=== PATIENT | female | born 1945 | race African-American/Black ===

== ENCOUNTER 2016-09-12 10:00 | Inpatient (IN) | payer OTHER ==
[2016-09-05 14:38] VITALS: BMI 35.2
[2016-09-26] MEDS ORDERED: ALVIMOPAN 12 MG CAP PO ONE (12:30)
--- NOTE | 2016-09-26 12:30 | HP ---
History & Physical Update - History History: No Change - Physical Physical: No Change - Assessment Assessment: No Change - Plan Plan: No Change Currently as noted:: Initial H&P is in francisca's paper chart. Completed by Ruthy Garces MD
[2016-09-26] MEDS ORDERED: BUPIVACAINE HCL/PF 0.5% (5MG/ML) 10 ML VIAL ONE ×2 (12:35→17:14)
[2016-09-26] MEDS ORDERED: LIDOCAINE HCL/PF 2% SDV 5ML VIAL ONE (13:17)
[2016-09-26] MEDS ORDERED: PROPOFOL 20 ML ONE (13:17)
[2016-09-26] MEDS ORDERED: MIDAZOLAM HCL 2 MG/2 ML SINGLE DOSE VIAL ONE (13:17)
[2016-09-26] MEDS ORDERED: ROCURONIUM BROMIDE 50 MG/5 ML VIAL ONE ×2 (13:17→14:29)
[2016-09-26] MEDS ORDERED: ceFAZolin SODIUM 1 GM VIAL IVPB ONE (13:37)
[2016-09-26] MEDS ORDERED: DEXAMETHASONE SOD PHOSPHATE 4 MG/1 ML VIAL ONE (14:34)
[2016-09-26] MEDS ORDERED: ceFAZolin SODIUM 1 GM VIAL ONE ×2 (14:34)
[2016-09-26] MEDS ORDERED: HYDROmorphone HCL/PF 1 MG/ML VIAL (FOR PYXIS CHARGING ONLY) ONE ×2 (15:35→16:58)
[2016-09-26] MEDS ORDERED: ePHEDrine SULFATE 50 MG/1 ML AMPULE ONE (16:33)
[2016-09-26] MEDS ORDERED: PROMETHAZINE HCL 25 MG/1 ML VIAL IVPUSH PRN (17:37)
[2016-09-26] MEDS ORDERED: ONDANSETRON 4 MG/2 ML VIAL IVPUSH PRN ×2 (17:37)
[2016-09-26] MEDS ORDERED: DEXAMETHASONE SOD PHOSPHATE 4 MG/1 ML VIAL IVPUSH PRN (17:37)
[2016-09-26] MEDS ORDERED: PROMETHAZINE HCL 25 MG/1 ML VIAL IVPB PRN (17:37)
[2016-09-26] MEDS ORDERED: HYDROmorphone *PCA* 10MG/50ML DISP.SYRIN PCA ONE (17:43)
--- NOTE | 2016-09-26 17:43 | OP ---
Operative Note - Note: Pre-Operative Diagnosis: right colon neoplasm/ ventral hernia Operation: robotic assisted right colectomy and ventral hernia repair Post-Operative Diagnosis: Other Surgeon: Kevin Augustine Chicken Cleaner: Apollo Voss Anesthesia: General Specimens Removed: right colon, appendix, hernia sac Estimated Blood Loss (mls): 25 Operative Report Dictated: Yes
[2016-09-26] MEDS ORDERED: BUPIVACAINE HCL/PF 0.5% (5MG/ML) 10 ML VIAL IJ ONE (17:44)
[2016-09-26] MEDS ORDERED: KCL IV SCH (17:45)
[2016-09-26] MEDS ORDERED: LACTATED RINGERS SOLUTION 1,000 ML IV SCH (17:45)
[2016-09-26] MEDS ORDERED: D5 LR IV SCH (17:45)
--- NOTE | 2016-09-26 17:53 | SURG ---
Surgery Director Of Recruitment Note Director Of Recruitment: Apollo Voss PA-C Date of Service: 09/26/16 Diagnosis: right colon neoplasm/ ventral hernia Procedure: robotic assisted right colectomy and ventral hernia repair I was present for the entirety of the operative procedure. For further detail, please refer to operative report. Visit type - Case Type Case Type: Scheduled Admission - New patient This patient is new to me today: Yes Date on this admission: 09/26/16
[2016-09-26] MEDS: HYDROmorphone *PCA* 10MG/50ML DISP.SYRIN PCA SCH (18:15)
[2016-09-26 18:54] LABS: BASOPHIL 0.3 % (0-2.0); MCH 23.4 pg (25.7-33.7); MCHC 31.5 g/dl (32.0-36.0); MEAN CELL VOLUME 74.2 fl (80-96); MEAN PLT VOLUME 8.6 fl (7.5-11.1); NEUTROPHILS 90.6 % (42.8-82.8); PLATELET COUNT 266 K/MM3 (134-434); RDW 17.8 % (11.6-15.6)
[2016-09-26 19:14] LABS: ALBUMIN 3.5 g/dl (3.4-5.0); BILIRUBIN,TOTAL 0.2 mg/dL (0.2-1.0); CALCIUM 8.4 mg/dL (8.5-10.1); CREATININE 1.5 mg/dL (0.55-1.02); TOT PROT 6.8 g/dl (6.4-8.2)
[2016-09-27] MEDS ORDERED: PT OWN MED DRAWER 7, Y5N ONE ×2 (08:03→08:37)
--- NOTE | 2016-09-27 08:17 | OP ---
DATE OF OPERATION: DATE OF DICTATION: 09/26/2016 PREOPERATIVE DIAGNOSIS: Right colon neoplasm. POSTOPERATIVE DIAGNOSES: Right colon neoplasm and ventral hernia. PROCEDURE: Laparoscopic robotic-assisted right colectomy and ventral hernia repair. SURGEON: Kevin Augustine MD COVERAGE SPECIALIST: ROLANDO Alarcon COMPLICATIONS: None. SPECIMENS: Right colon and hernia sac. COMPLICATIONS: Patient tolerated procedure well. There were no complications. This is a 71-year-old female with a history of a colonic mass identified on colonoscopy and patient has a history of previous hysterectomy and small-bowel resection which was done several years ago. Medical clearance obtained, and patient was admitted for elective colon resection with bowel prep. At this point then, in the operating room she received IV antibiotics and DVT prophylaxis with Lovenox. The Veress needle was used to then insufflate the peritoneal cavity to a pressure of 15 mmHg. Next, a total of 5 ports were introduced first under direct view trocar followed by introduction of 4 robotic ports, all 8-mm ports. The Da Antoine robot was docked into place. Then, lysis of adhesions was done to release the extensive amount of anterior abdominal wall adhesions to the small bowel. Once this was completely freed, then attention was directed to the sigmoid colon. The left colic artery was identified. It was then mobilized. Entered into the retroperitoneum. The retrocolic artery was subsequently skeletonized and then divided with an Endo-SAVANNAH stapler 2.5. The mobilization was then carried northwards towards the terminal ileum using the vessel sealer to divide the mesentery until the border of the terminal ileum was reached and then the terminal ileum was divided with an Endo-SAVANNAH stapler white cartridge. Once this was completed, then the colon was then mobilized along the white line of Toldt until the gutter was subsequently freed using primarily the vessel sealer all the way to the hepatic flexure. Next, the transverse colon was then freed from the omentum and the left side was entered, duodenum identified, and the vessel sealer was used to divide the attachments and release superiorly the transverse colon towards the hepatic flexure all the way to the hepatic flexure, completely freeing the colon up to its posterior as well as lateral attachments. At this point then, an Endo-SAVANNAH purple cartridge was used to divide the colon at the level of the middle colic artery and then an anastomosis was done intracorporeally by first placing 2 stay sutures within the terminal ileum and the transverse colon and then a firing of an Endo-SAVANNAH purple cartridge within 2 enterotomies in order to create the anastomosis and then the common enterotomy channels were closed using first 2-0 Vicryl suture in a running fashion followed by a 2nd layer of 2-0 Lembert silk sutures. Once completed, then the specimen was placed in an EndoCatch bag and removed through an extraction incision which was made at the level of the hernia which was just inferior to the umbilicus and the specimen was brought out. At this point then, we changed gowns and gloves and reprepped the patient. The hernia sac was then dissected off the fascia using cautery and then a primary repair using No. 1 Vicryl sutures in interrupted figure-of-8 fashion was performed. Next, the wound was irrigated and suctioned. The final check for hemostasis was done. Marcaine was infiltrated at the wound extraction site. The ports were then closed using 4-0 Monocryl. The skin at the wound extraction site was closed with also 4-0 Monocryl. Dermabond was applied, and the patient was then returned to the recovery room awake, alert, in stable condition. Jean-Paul [id number]
[2016-09-27 08:38] LABS: BASOPHIL 0.1 % (0-2.0); MCH 23.6 pg (25.7-33.7); MCHC 31.7 g/dl (32.0-36.0); MEAN CELL VOLUME 74.5 fl (80-96); MEAN PLT VOLUME 8.9 fl (7.5-11.1); NEUTROPHILS 89.9 % (42.8-82.8); PLATELET COUNT 221 K/MM3 (134-434); RDW 17.6 % (11.6-15.6); WHITE BLOOD COUNT 15.9 K/mm3 (4.0-10.0)
--- NOTE | 2016-09-27 08:44 | PN ---
Progress Note (short form) - Note Progress Note: Anesthesia POD#1 S/P Robotic Laproscopic hemicolectomy under GA and Dilaudid HOT CAR CHARGER Patient is sitting in bed,alert and oriented.Pain is under control with dilaudid HOT CAR CHARGER. Some nausea is present. Did not start Orals yet. A/P Continue HOT CAR CHARGER for today. No other complications to anesthesia seen. Lisa Murphy .MD.
[2016-09-27] MEDS: ALVIMOPAN 12 MG CAP PO SCH ×2 (09:02→20:48)
[2016-09-27] MEDS ORDERED: PNEUMOC 13-VAL CONJ-DIP CRM/PF 0.5 ML DISP.SYRIN IM ONE (10:00)
[2016-09-27] MEDS ORDERED: INFLUENZA VACCINE 45 MCG/0.5 ML (MDV 16-17) IM ONE (10:00)
[2016-09-27] MEDS: amLODIPine BESYLATE 10 MG TABLET (FP) PO SCH (11:49)
[2016-09-27 12:04] LABS: ALBUMIN 3.2 g/dl (3.4-5.0); BILIRUBIN,TOTAL 0.3 mg/dL (0.2-1.0); CALCIUM 8.6 mg/dL (8.5-10.1); TOT PROT 6.6 g/dl (6.4-8.2)
--- NOTE | 2016-09-27 16:32 | PN ---
Progress Note (short form) - Note Progress Note: POD#1 Pt with one episode of nausea and clear emesis today. No further nausea. She has been oob to chair and ambulating to the restroom. Pain level comfortable when lying in bed, more pain with movement. Vital Signs Period Temp Pulse Resp BP Sys/Gutierrez Pulse Ox Last 24 Hr 97 F-98.3 F 59-79 6-18 93-135/49-75 93-99 PE: GEN: A&0x3, NAD CV:RRR Lungs: CTA b/l ABD: Soft, non-distended, inc tenderness with. Inc c/d/i with dermabond LE: Sandra in place. No calf tenderness or Swelling noted b/l CBC, BMP /19/17 06:00 01/19/17 06:00 A/P: s/p Robotic assisted right colectomy with ventral hernia repair POD#1 No bowel function, will continue NPO except for meds Pain managment with IV dilaudid CURRICULUM WRITER Cont DVT ppx with SANDRA/SCD/ambulate and Heparin SQ(ordered) Change IV fluids to D5-NS, potassium value at 5, am cbc/BMP ordered D/w Dr. Jung
[2016-09-27] MEDS: DEXTROSE 5%-NORMAL SALINE 1,000 ML IV SCH (17:07)
[2016-09-27] MEDS ORDERED: HYDROmorphone *PCA* 10MG/50ML DISP.SYRIN PCA ONE (18:35)
[2016-09-27] MEDS: HYDROmorphone *PCA* 10MG/50ML DISP.SYRIN PCA SCH ×2 (18:43→18:49)
[2016-09-27] MEDS: HEPARIN NA (PORCINE) 5,000 UNITS/ML 1ML VIAL SQ SCH (22:00)
[2016-09-28] MEDS: DEXTROSE 5%-NORMAL SALINE 1,000 ML IV SCH (03:22)
[2016-09-28] MEDS: HEPARIN NA (PORCINE) 5,000 UNITS/ML 1ML VIAL SQ SCH ×3 (07:39→21:24)
[2016-09-28] MEDS: ALVIMOPAN 12 MG CAP PO SCH ×2 (08:12→20:34)
[2016-09-28 08:17] LABS: BASOPHIL 0.2 % (0-2.0); EOSINOPHIL 0.1 % (0-4.5); MCH 23.5 pg (25.7-33.7); MCHC 31.6 g/dl (32.0-36.0); MEAN CELL VOLUME 74.3 fl (80-96); MEAN PLT VOLUME 8.8 fl (7.5-11.1); NEUTROPHILS 81.1 % (42.8-82.8); PLATELET COUNT 201 K/MM3 (134-434); RDW 17.9 % (11.6-15.6); WHITE BLOOD COUNT 11.2 K/mm3 (4.0-10.0)
[2016-09-28] MEDS ORDERED: D5-1/2NS+20 MEQ KCL - 1,000 ML IV SCH (08:30)
--- NOTE | 2016-09-28 08:33 | PN ---
Progress Note (short form) - Note Progress Note: General Surgery, POD#2 Pt without any further nausea or emesis. NO bowel function. Vital Signs Period Temp Pulse Resp BP Sys/Gutierrez Pulse Ox Last 24 Hr 97.3 F-98.5 F 59-74 18-20 119-123/60-67 96-96 PE: GEN:A&0x3, NAD CV: RRR Lungs: Cta b/l, anteriorly ABD: soft, non- distended, inc tenderness. Inc c/d/i LE: no calf tendneress or swelling noted b/l, TEDs in place. cbc/bmp pending A/P: s/p Robotic assisted right colectomy with ventral hernia repair POD#[address] Jung today/IV hydration cbc/chem pending today OOB and ambulate [employer] WORKER-dilaudid, discontinue as per anesthesia DVT ppx with Hep SQ/ashly/scd/ambulate
[2016-09-28 08:44] LABS: CALCIUM 8.1 mg/dL (8.5-10.1)
[2016-09-28 08:45] LABS: CREATININE 0.8 mg/dL (0.55-1.02)
[2016-09-28] MEDS ORDERED: PT OWN MED DRAWER 7, Y5N ONE ×2 (08:57→13:51)
[2016-09-28] MEDS: amLODIPine BESYLATE 10 MG TABLET (FP) PO SCH (09:12)
--- NOTE | 2016-09-28 11:18 | PN ---
Progress Note (short form) - Note Progress Note: ANESTHESIA POST-OP CHECK 71F s/p robotic laparoscopic hemicolectomy under general anesthesia POD #2. No acute complaints, pain 2/10 at rest with good effect from PLUMBER MAINTENANCE. Denies N/V, tolerating liquids PO which were just started this morning, ambulating and voiding. Vital Signs Temperature 98.5 F 09/28/16 08:19 Pulse Rate 63 09/28/16 08:19 Respiratory Rate 16 09/28/16 09:00 Blood Pressure 116/63 09/28/16 08:19 O2 Sat by Pulse Oximetry (%) 98 09/28/16 09:00 Active Medications Alvimopan (Entereg Capsule (Restricted) -) 12 mg PO Q12H [facility] Last Admin: 09/28/16 08:12 Dose: 12 mg Amlodipine Besylate (Norvasc -) 10 mg PO DAILY [facility] Last Admin: 09/28/16 09:12 Dose: 10 mg Dexamethasone Sodium Phosphate (Decadron Injection -) 4 mg IVPUSH ONCE PRN PRN Reason: NAUSEA AND/OR VOMITING Diphenhydramine HCl (Benadryl Injection -) 12.5 mg IVPUSH ONCE PRN PRN Reason: FOR ITCHING Heparin Sodium (Porcine) (Heparin -) 5,000 unit SQ TID [facility] Last Admin: 09/28/16 07:39 Dose: Not Given Hydromorphone HCl (Dilaudid Director Data Processing -) 0 mg PLUMBER MAINTENANCE PLUMBER MAINTENANCE [facility] PRN Reason: Protocol Stop: 10/03/16 17:38 Last Admin: 09/27/16 18:49 Dose: Not Given Potassium Chloride/Dextrose/Sod Cl (D5-1/2ns+20 Meq Kcl -) 1,000 mls @ 42 mls/ hr IV ASDIR [facility] Last Admin: 09/28/16 09:13 Dose: Not Given Promethazine HCl (Phenergan Injection -) 12.5 mg IVPB Q6H PRN PRN Reason: NAUSEA AND/OR VOMITING Gen: Awake, alert No apparent anesthesia complications. Pain controlled, continue PLUMBER MAINTENANCE until tolerating PO diet and able to take PO analgesics. Continue management as per primary team.
[2016-09-28] MEDS ORDERED: oxyCODONE HCL 5 MG TABLET PO PRN (17:11)
[2016-09-28] MEDS: oxyCODONE HCL 5 MG TABLET PO PRN ×2 (17:30→23:15)
[2016-09-29] MEDS: HEPARIN NA (PORCINE) 5,000 UNITS/ML 1ML VIAL SQ SCH ×3 (06:10→21:31)
[2016-09-29 07:45] LABS: BASOPHIL 0.6 % (0-2.0); EOSINOPHIL 0.4 % (0-4.5); MCH 23.6 pg (25.7-33.7); MEAN CELL VOLUME 73.7 fl (80-96); MEAN PLT VOLUME 8.7 fl (7.5-11.1); NEUTROPHILS 72.9 % (42.8-82.8); PLATELET COUNT 204 K/MM3 (134-434); RDW 17.4 % (11.6-15.6); WHITE BLOOD COUNT 8.4 K/mm3 (4.0-10.0)
--- NOTE | 2016-09-29 08:25 | PN ---
Progress Note (short form) - Note Progress Note: Anesthesia/Pain Pt seen and examined S:alert and awake Comfortable O: Vital Signs Temperature 98.4 F 09/29/16 06:00 Pulse Rate 69 09/29/16 06:00 Respiratory Rate 20 09/29/16 06:00 Blood Pressure 120/78 09/29/16 06:00 O2 Sat by Pulse Oximetry (%) 98 09/28/16 21:00 CBC, BMP 09/29/16 06:30 A/P: s/p Lap fanta colectomy MEDICAL OFFICE REP stopped Doing well post op Continue current care Benedicto Greer MD
[2016-09-29 08:54] LABS: CREATININE 0.8 mg/dL (0.55-1.02)
--- NOTE | 2016-09-29 09:02 | PN ---
Progress Note (short form) - Note Progress Note: Patient seen and examined this morning. Patient is doing well, has some pain with movement, but pain is controlled. Patient is tolerating clear liquid diet without nausea or vomiting. She has been ambulating in the halls. She reports having a liquid BM last night and is passing flatus. She has no complaints, denies F/C/N/V. Last Vital Signs Temp Pulse Resp BP Pulse Ox 98.4 F 69 20 120/78 98 09/29/16 06:00 09/29/16 06:00 09/29/16 06:00 09/29/16 06:00 09/28/16 21:00 CBC, BMP 09/29/16 06:30 BMP pending- folloow-up results PE: Gen: NAD, resting comfortably, pleasant and cooperative Cardio: RRR Resp: CTA Abd: Soft, nondistended, mildly tender around midline incision with palp, incisions clean, dry, intact LE: soft, nontender A/P POD#3 s/p robotic assisted right colectomy for right colon neoplasm and ventral hernia repair Advance to regular diet Stop entereg Continue PO pain medication, Oxycodone PRN Ambulate, DVT prophylaxis Follow-up BMP Patient discussed with Dr. Augustine
[2016-09-29] MEDS: ALVIMOPAN 12 MG CAP PO SCH (09:54)
[2016-09-29] MEDS: amLODIPine BESYLATE 10 MG TABLET (FP) PO SCH (10:03)
[2016-09-29] MEDS ORDERED: HEPARIN NA (PORCINE) 5,000 UNITS/ML 1ML VIAL ONE (13:51)
[2016-09-29] MEDS ORDERED: oxyCODONE HCL 5 MG TABLET PO PRN ×2 (15:08→15:09)
[2016-09-30] MEDS: HEPARIN NA (PORCINE) 5,000 UNITS/ML 1ML VIAL SQ SCH (06:15)
[2016-09-30 09:37] VITALS: BP 140/86; PULSE 60; TEMP 98.8
--- NOTE | 2016-09-30 09:37 | DS ---
Physical Exam: SUBJECTIVE: Patient seen and examined this morning 09/30/16. Patient states she is feeling well and pain is well controlled. She is tolerating her diet without nausea and vomiting. She has had multiple bowel movements and is passing flatus. She has been ambulating in the hallways. She has no complaints and feels ready to go home. OBJECTIVE: Vital Signs Temperature 98.4 F 09/30/16 06:51 Pulse Rate 69 09/30/16 06:51 Respiratory Rate 20 09/30/16 06:51 Blood Pressure 128/78 09/30/16 06:51 O2 Sat by Pulse Oximetry (%) 96 09/29/16 21:00 PHYSICAL EXAM GENERAL: The patient is awake, alert, and fully oriented, in no acute distress. HEAD: Normal with no signs of trauma. EYES: PERRL, extraocular movements intact, sclera anicteric, conjunctiva clear. ENT: Ears normal, nares patent, moist mucous membranes. NECK: Trachea midline, full range of motion, supple. LUNGS: Breath sounds equal, clear to auscultation bilaterally. HEART: Regular rate and rhythm, S1, S2 without murmur, rub or gallop. ABDOMEN: Soft, mild tenderness with palp, nondistended, normoactive bowel sounds , no guarding, no rebound, incisions clean, dry, intact EXTREMITIES: soft, warm, well-perfused. NEUROLOGICAL: Cranial nerves II through XII grossly intact. Normal speech, gait not observed. PSYCH: Normal mood, normal affect. SKIN: Warm, dry, normal turgor. LABS CBC,CMP CBC, BMP 09/29/16 06:30 09/29/16 06:30 HOSPITAL COURSE: Date of Admission:09/26/16 Date of Discharge: 09/30/16 The patient was admitted to the Med-Surg Unit after a scheduled robotic assisted right colectomy and ventral hernia repair for a right colon neoplasm on 09/26/[address] Augustine. The patient tolerated the procedure well and had a largely uneventful hospital stay, she remained afebrile and hemodynamically stable. DVT prophylaxis was achieved with SCDs and SC Heparin. Now, POD#4, the patient is tolerating a regular diet, urinating without issue, had a BM, is passing gas, and ambulating in the hallways. The patient's pain is now controlled with oral pain medication. The discharge instructions and an oral pain management plan were reviewed with the patient. It was felt the patient was ready for discharge with instructions to follow up with Dr. Augustine on 10/05/16. All questions answered. Above plan discussed with Dr. Augustine and agreed. Minutes to complete discharge: 30 Visit type - Case Type Case Type: Scheduled Admission
[2016-09-30] MEDS ORDERED: amLODIPine BESYLATE 10 MG TABLET (FP) PO SCH (10:00)
--- NOTE | 2016-10-01 14:19 | PATH ---
Surgical Pathology Report Patient Name: GUICHO WHITNEY [facility]. Rec. #: [id number] /Age/Gender: 1945 (Age: 71) / F Account: [id number] Location: [facility] MED/SURG Taken: 09/26/2016 Received: 09/27/2016 Reported: 10/01/2016 Physicians: Kevin Augustine M.D. Specimen(s) Received A: RIGHT COLON B: VENTRAL HERNIA SAC Clinical History Neoplasm of colon Final Diagnosis A. 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 INVASIVE CARCINOMA EXTENT: CARCINOMA FOCALLY INVADES INTO THE SUBMUCOSA (pT1). SURGICAL RESECTION MARGINS: ALL RESECTION MARGINS INCLUDING PROXIMAL AND DISTAL MUCOSAL AND RADIAL (MESENTERIC) ARE NEGATIVE FOR CARCINOMA; CLOSEST RESECTION MARGIN (RADIAL) IS 2.5 CM AWAY FROM CARCINOMA. LYMPHOVASCULAR INVASION: NOT IDENTIFIED. PERINEURAL INVASION: NOT IDENTIFIED. DISCONTINUOUS TUMOR DEPOSITS: NOT IDENTIFIED. TUMOR PERFORATION: NOT IDENTIFIED. SURROUNDING COLON: TUBULAR ADENOMA x3; DIVERTICULOSIS. APPENDIX: PARTIAL FIBROUS OBLITERATION. SIXTEEN LYMPH NODES NEGATIVE FOR METASTATIC CARCINOMA (0/16). PATHOLOGIC STAGING: PRIMARY TUMOR: pT1 LYMPH NODES: pN0 Comment: DNA Mismatch Repair (MMR) protein expression analysis by IHC is pending; results will be reported in an addendum. B. HERNIA SAC, VENTRAL HERNIA REPAIR: BENIGN FIBROMEMBRANOUS AND FIBROADIPOSE TISSUE WITH FOCAL CHRONIC INFLAMMATION AND VASCULAR CONGESTION CONSISTENT WITH HERNIA SAC. Comments Colorectal carcinoma : Surgical Pathology Cancer Case Summary (Checklist) Based on AJCC/UICC TNM, 7th edition Specimen: terminal ileum, appendix, right colon Procedure: robotic assisted laparoscopic colon resection Tumor Site: right colon Tumor Size Greatest dimension: 0.4 cm (invasive adenocarcinoma); 3.3 cm (background tubulovillous adenoma) Macroscopic Tumor Perforation _x_ Not identified Histologic Type : adenocarcinoma Histologic Grade _x_ Low-grade (well-differentiated) Microscopic Tumor Extension _x_ Tumor invades submucosa Margins Proximal Margin _x_ Uninvolved by invasive carcinoma Distal Margin _x_ Uninvolved by invasive carcinoma Circumferential (Radial) or Mesenteric Margin _x_ Uninvolved by invasive carcinoma If all margins uninvolved by invasive carcinoma: Distance of invasive carcinoma from closest margin: 2.5 cm Specify margin: radial Lymph-Vascular Invasion _x_ Not identified Perineural Invasion _x_ Not identified Tumor Deposits (discontinuous extramural extension) _x_ Not identified Pathologic Staging (pTNM) Primary Tumor: pT1 Regional Lymph Nodes: pN0 Number examined: 16 Number involved: 0 Distant Metastasis (pM): not applicable Electronically Signed Oscar Rocha M.D. Addendum Reported: 10/02/2016 Addendum Diagnosis Immunohistochemical stains for MisMatch Repair Protein Analysis performed on block A8 at [facility] in [place], [place] ([id number]) and interpreted at [facility] show the following: RESULTS: HMLH-1 INTACT NUCLEAR EXPRESSION HMSH-2 INTACT NUCLEAR EXPRESSION HMSH-6 INTACT NUCLEAR EXPRESSION PMS2 INTACT NUCLEAR EXPRESSION INTERPRETATION: No loss of nuclear expression of MMR proteins: low probability of microsatellite instability-high (MSI-H) Chago Hernandez M.D. Gross Description A. Received in formalin, labeled "right colon" is a 4.5 cm in length portion of terminal ileum with an attached 21.5 cm in length portion of cecum and right colon. The specimen displays 2 stapled mucosal margins and moderate attached pericolonic adipose tissue. The appendix is separately received within the same container. The serosa is pink-allen and smooth. The mucosa displays a 3.3 x 2.7 cm allen polypoid mass at 8.5 cm from the distal mucosal margin of resection. The mass is at 2.5 cm from the mesenteric margin of resection. The mass displays possible invasion into the muscularis. There is a 0.5 cm in greatest dimension polypoid lesion which appears confined to the mucosa at 2 cm proximal to the mass. There are 2 additional polypoid lesions confined to the mucosa measuring 0.5 and 1.2 cm in greatest dimension. The larger polyp is pedunculated and at 0.5 cm distal to the mass. The smaller polyp is at 4 cm distal to the mass. Sectioning reveals focal uncomplicated diverticula. The remaining mucosa is allen with normal folds. Sectioning of the pericolonic adipose tissue reveals multiple allen, possible lymph nodes ranging from 0.1-0.7 cm in greatest dimension. Hammerer sections are submitted in 28 cassettes as follows: 1-proximal mucosal margin of resection; 2-distal mucosal margin of resection; 3-shave of mesenteric margin of resection; 4-appendix; 2-4-swhxbuhl submitted mass; 10-proximal mucosal polyp; 11-larger distal mucosal polyp; 12-smaller distal mucosal polyp; 18-44-upcpepbedqs; 15-uninvolved terminal ileum; 16-uninvolved cecum and distal right colon; 17-19-one whole bisected lymph node each; 71-22-lzmaxdjr possible lymph nodes each B. Received in formalin, labeled "ventral hernia sac" is a 4.0 x 3.0 x 0.7 cm aggregate of multiple allen-yellow, irregular portions of fibrous and soft tissue. Hammerer sections are submitted in one cassette. 09/27/2016 saudi09/27/2016
== END 2016-09-30 11:43 | disposition home or self-care (01) | DRG 331 ==
LOC: EDSTATUS 10:00 → JSAMEDAYSX 09-26 10:52 → J8W 09-26 20:16 → UNDODISIN 09-29 13:46
PROVIDERS: ADMIT Surgery; ATTEND Surgery
PROC: 0WQF4ZZ Repair Abdominal Wall, Percutaneous Endoscopic Approach (ICD-10-PCS; 2016-09-26)
PROC: 0JN83ZZ Release Abdomen Subcutaneous Tissue and Fascia, Percutaneous Approach (ICD-10-PCS; 2016-09-26)
PROC: 8E0W4CZ Robotic Assisted Procedure of Trunk Region, Percutaneous Endoscopic Approach (ICD-10-PCS; 2016-09-26)
PROC: 0DTF4ZZ Resection of Right Large Intestine, Percutaneous Endoscopic Approach (ICD-10-PCS; principal; 2016-09-26 13:00)
DX: C18.9 Malignant neoplasm of colon, unspecified (principal); K43.9 Ventral hernia without obstruction or gangrene; K66.0 Peritoneal adhesions (postprocedural) (postinfection); I10 Essential (primary) hypertension; D64.9 Anemia, unspecified; E66.8 Other obesity; Z68.35 Body mass index [BMI] 35.0-35.9, adult; Z71.3 Dietary counseling and surveillance
CPT/HCPCS: 36415; 80048; 80053; 85025; 86850; 86900; 86901; 88302-TC; 88309-TC; 90670; 94010; 94760; G0008; J1644; Q2037

== ENCOUNTER 2016-10-07 12:16 | Inpatient (IN) | payer OTHER ==
--- NOTE | 2016-10-07 13:34 | PDOC ---
[id number] No Limitations - History of Present Illness Initial Comments: CHIEF COMPLAINT: 71 y/o afebrile female with PMH HTN and colon malignancy ( colon resection 09/26/[address] Jung) c/o discharge from surgical site. HISTORY OF PRESENT ILLNESS: She states the discharge was a yellowish color. She denies pain to the surgical site, fever, chills, foul smelling discharge. Vital signs on arrival are within normal limits. REVIEW OF SYSTEMS: GENERAL/CONSTITUTIONAL: No fever/chills. No weakness. No weight change. HEAD, EYES, EARS, NOSE AND THROAT: No change in vision. No ear pain or discharge. No sore throat. CARDIOVASCULAR: No chest pain or shortness of breath. RESPIRATORY: No cough, wheezing, or hemoptysis. GASTROINTESTINAL: No abd pain, nausea, vomiting, diarrhea. GENITOURINARY: No dysuria, frequency, or change in urination. MUSCULOSKELETAL: No joint or muscle swelling or pain. No neck or back pain. SKIN: +discharge from surgical site. NEUROLOGIC: No headache, vertigo, loss of consciousness, or loss of sensation. PHYSICAL EXAM: GENERAL: The patient is awake, alert, and fully oriented, in no acute distress. She is well appearing and ambulatory. HEAD: Normal with no signs of trauma. ENT: Pupils equal, round and reactive to light, extraocular movements intact, sclera anicteric, conjunctiva clear. Neck supple. LUNGS: Clear to auscultation bilaterally. Normal excursion. No respiratory distress or use of accessory muscles. CV: RRR, S1/S2, no MRG. Cap refill < 2 sec. ABDOMEN: Soft, non-distended. Well healing vertical incision from under umbilicus down to suprapubic region. No active drainage from incision. No surrounding erythema or warmth. EXTREMITIES: Normal range of motion, no edema. NEUROLOGICAL: Normal speech, normal gait. CN II-XII grossly intact. PSYCH: Normal mood, normal affect. SKIN: Warm, dry, normal turgor, no rashes or lesions noted. <Nathalia Lorenz - Last Filed: 10/07/16 18:48> <Vannessa Eldridge - Last Filed: 10/10/16 15:11> - General Chief Complaint: Wound Stated Complaint: POST-SURG, LEAKING Time Seen by Provider: 10/07/16 13:30 Past History - Past Medical History CVA: No Dementia: No Diabetes: No GI Disorders: No HTN: Yes Hypercholesterolemia: No Seizures: No Thyroid Disease: No - Surgical History Abdominal Surgery: Yes (HERNIA REPAIR) Appendectomy: Yes - Psycho/Social/Smoking Cessation Hx Suicidal Ideation: No Smoking History: Never smoked Have you smoked in the past 12 months: No Hx Alcohol Use: No Drug/Substance Use Hx: No Substance Use Type: None <Nathalia Lorenz - Last Filed: 10/07/16 18:48> <Vannessa Eldridge - Last Filed: 10/10/16 15:11> - Past Medical History Allergies/Adverse Reactions: Allergies Allergy/AdvReac Type Severity Reaction Status Date / Time No Known Allergies Allergy Verified 10/07/16 12:20 Home Medications: Ambulatory Orders Amlodipine Besylate 10 mg PO DAILY 09/05/16 Aspirin [Aspirin EC] 81 mg PO DAILY 09/05/16 Oxycodone HCl/Acetaminophen [Percocet 5-325 mg Tablet] 1 tab PO Q6H PRN #20 tablet MDD 4 09/30/16 Acetaminophen [Tylenol .Extra-Strength -] 500 mg PO Q4H 10/07/16 *Physical Exam - Vital Signs Last Vital Signs Temp Pulse Resp BP Pulse Ox 98.0 F 82 20 131/96 98 10/07/16 12:17 10/07/16 12:17 10/07/16 12:17 10/07/16 12:17 10/07/16 12:17 <Nathalia Lorenz - Last Filed: 10/07/16 18:48> - Vital Signs Last Vital Signs Temp Pulse Resp BP Pulse Ox 98.2 F 70 20 116/74 99 10/09/16 10:00 10/09/16 10:00 10/09/16 10:00 10/09/16 10:00 10/09/16 09:00 <Vannessa Eldridge - Last Filed: 10/10/16 15:11> ED Treatment Course - LABORATORY CBC & Chemistry Diagram: 10/07/16 14:04 <Nathalia Lorenz - Last Filed: 10/07/16 18:48> - LABORATORY CBC & Chemistry Diagram: 10/09/16 06:00 10/08/16 05:52 - Medications Given in the ED: ED Medications Discontinued Medications Generic Name Dose Route Start Last Admin Trade Name Fransisca PRN Reason Stop Dose Admin Amlodipine Besylate 10 mg 10/08/16 15:15 10/09/16 10:21 Norvasc - PO 10 mg DAILY ALTAF Administration Aspirin 81 mg 10/08/16 15:15 10/09/16 10:21 Ecotrin - PO 81 mg DAILY ALTAF Administration Vancomycin HCl 250 mls @ 150 mls/hr 10/07/16 19:30 10/07/16 21:44 Vancomycin (Pre-Docked) IVPB 10/07/16 21:09 150 mls/hr ONCE ONE Administration Sodium Chloride 1,000 mls @ 75 mls/hr 10/07/16 20:00 10/09/16 06:41 Normal Saline - IV 75 mls/hr ASDIR ALTAF Administration Piperacillin Sod/Tazobactam 100 mls @ 200 mls/hr 10/08/16 03:00 10/08/16 11:08 Sod 4.5 gm/ Dextrose IVPB Not Given Q6H-IV ALTAF Vancomycin HCl 1,250 mg/ 250 mls @ 250 mls/hr 10/08/16 10:30 10/08/16 21:51 Dextrose IVPB 250 mls/hr BID ALTAF Administration Piperacillin Sod/Tazobactam 100 mls @ 200 mls/hr 10/08/16 10:30 10/08/16 11:20 Sod 4.5 gm/ Dextrose IVPB 200 mls/hr Q8H-IV ALTAF Administration Piperacillin Sod/Tazobactam Sod 100 mls @ 200 mls/hr 10/08/16 11:09 10/09/16 01 :25 Zosyn 4.5gm Ivpb (Pre-Docked) IVPB 200 mls/hr Q8H-IV ALTAF Administration Piperacillin Sod/Tazobactam Sod 3.375 gm 10/07/16 19:05 10/07/16 20:25 Zosyn 3.375gm Ivpb (Pre-Docked) IVPB 10/07/16 19:06 3.375 gm ONCE ONE Administration <Vannessa Eldridge - Last Filed: 10/10/16 15:11> Medical Decision Making - Medical Decision Making A/P: 71 y/o female with drainage from surgical incision. Plan is as follows: 1. CT scan abd/pelvis IMPRESSION: Findings suspicious for an evolving subcutaneous abscess at the level of the umbilicus. Patient made aware of the results and plan for admission. Labs and blood cultures ordered. SPoke with Dr. Muñoz, Hospitalist, who accepted admission. Called Dr. Jung - no call back yet. <Nathalia Lorenz - Last Filed: 10/07/16 18:48> *DC/Admit/Observation/Transfer - Discharge Dispostion Admit: Yes <Nathalia Lorenz - Last Filed: 10/07/16 18:48> - Attestations Physician Attestion: I reviewed the case with the mid-level practitioner and agree with the mid- level practitioner's assessment, diagnosis and disposition. <Vannessa Eldridge - Last Filed: 10/10/16 15:11> Diagnosis at time of Disposition: Abscess of umbilicus Post surgical complication Qualifiers: Surgical complication system/body Area: subcutaneous tissue Surgical complication type: unspecified Procedure type: non-dermatologic Qualified Code(s ): L76.82 - Other postprocedural complications of skin and subcutaneous tissue - Discharge Dispostion Disposition: HOME Condition at time of disposition: Good - Referrals
[2016-10-07 15:23] LABS: ALBUMIN 3.6 g/dl (3.4-5.0); CALCIUM 8.7 mg/dL (8.5-10.1)
[2016-10-07 15:25] LABS: BILIRUBIN,TOTAL 0.2 mg/dL (0.2-1.0); TOT PROT 7.3 g/dl (6.4-8.2)
--- NOTE | 2016-10-07 19:00 | PN ---
<Oneyda Curran - Last Filed: 10/07/16 19:00> Teaching Attending Note Name of Resident: Lawanda Neves ATTENDING PHYSICIAN STATEMENT I saw and evaluated the patient. I reviewed the resident's note and discussed the case with the resident. I agree with the resident's findings and plan as documented. SUBJECTIVE: OBJECTIVE: ASSESSMENT AND PLAN: <Nela Bright - Last Filed: 10/07/16 22:05> Teaching Attending Note ATTENDING PHYSICIAN STATEMENT I saw and evaluated the patient. I reviewed the resident's note and discussed the case with the resident. I agree with the resident's findings and plan as documented. SUBJECTIVE: Patient is a 71 yo female with a PMHx of HTN and colon malignancy (colon resection, hernia repair and appendectomy 09/26/[address] Jung) c/o discharge from surgical site who presents with yellow discharge from surgical site. Patient states at 9:30 this morning she used the restroom and saw wet stuff draining from her surgical site. She also reports that she had a shooting pain multiple times today at the incision site that felt like being stuck with a needle. Patient denies fever, chills, nausea, vomiting, diarrhea, and constipation. Allergies: NKDA Social Hx: None OBJECTIVE: Last Vital Signs Temp Pulse Resp BP Pulse Ox 98.0 F 76 18 126/80 100 10/07/16 12:17 10/07/16 17:10 10/07/16 17:10 10/07/16 17:10 10/07/16 17:10 GENERAL: Awake, alert, and fully oriented, in no acute distress HEENT: Atraumatic. PERRLA, EOMI. Moist mucosa. No JVD LUNGS: No distress, speaks full sentences, clear to auscultation bilaterally HEART: Regular rate and rhythm, normal S1 and S2, no murmurs, rubs or gallops, peripheral pulses normal and equal bilaterally. ABDOMEN: Abdominal had erythema and vertical incision and warmth below umbilicus. Mild tenderness on palpation of RLQ normoactive bowel sounds. No guarding, no rebound. No masses EXTREMITIES: Normal inspection, Normal range of motion, no edema. No clubbing or cyanosis. NEUROLOGICAL: Cranial nerves II through XII grossly intact. Normal speech, normal gait, no focal sensorimotor deficits SKIN: Warm, Dry, normal turgor, no rashes or lesions noted. CBCD WBC 8.0 K/mm3 (4.0-10.0) 10/07/16 18:50 RBC 4.46 M/mm3 (3.60-5.2) 10/07/16 18:50 Hgb 10.2 GM/dL (10.7-15.3) L D 10/07/16 18:50 Hct 32.4 % (32.4-45.2) 10/07/16 18:50 MCV 72.7 fl (80-96) L 10/07/16 18:50 MCHC 31.6 g/dl (32.0-36.0) L 10/07/16 18:50 RDW 17.3 % (11.6-15.6) H 10/07/16 18:50 Plt Count 325 K/MM3 (134-434) D 10/07/16 18:50 MPV 8.1 fl (7.5-11.1) 10/07/16 18:50 CMP Sodium 141 mmol/L (136-145) 10/07/16 14:04 Potassium 4.3 mmol/L (3.5-5.1) 10/07/16 14:04 Chloride 105 mmol/L (98-107) 10/07/16 14:04 Carbon Dioxide 28 mmol/L (21-32) 10/07/16 14:04 Anion Gap 8 (8-16) 10/07/16 14:04 BUN 12 mg/dL (7-18) D 10/07/16 14:04 Creatinine 1.0 mg/dL (0.55-1.02) D 10/07/16 14:04 Creat Clearance w eGFR 54.66 (>60) 10/07/16 14:04 Calcium 8.7 mg/dL (8.5-10.1) 10/07/16 14:04 Total Bilirubin 0.2 mg/dL (0.2-1.0) D 10/07/16 14:04 AST 8 U/L (15-37) L 10/07/16 14:04 ALT 19 U/L (12-78) D 10/07/16 14:04 Alkaline Phosphatase 75 U/L (45-117) 10/07/16 14:04 Total Protein 7.3 g/dl (6.4-8.2) 10/07/16 14:04 Albumin 3.6 g/dl (3.4-5.0) 10/07/16 14:04 ASSESSMENT AND PLAN: 71 yo F with a PMHx of HTN and colon malignancy (colon resection 09/26/[address] Jung) c/o discharge from surgical site who presents with drainage from surgical incision being admitted for abdominal abscess. 1.) Abdominal abscess -start Zosyn 4.5 Q6 hours -Blood cultures -ID consult -Surgical consult -IVF -NPO -Type and screen -Consider IR consult for tomorrow for possible drainage -Coags -Vancomycin (given in ED) 2.) HTN -controlled DVT ppx -SCDs Admit to Med Surg Documentation prepared by Nela Bright, acting as medical equipment repairer for Oneyda Curran M.D.
[2016-10-07] MEDS ORDERED: PIPERACILLIN/TAZOB 3.375 GM/50 ML PRE-DOCKED IVPB ONE (19:05)
[2016-10-07 19:09] LABS: BASOPHIL 1.1 % (0-2.0); EOSINOPHIL 1.6 % (0-4.5); MCHC 31.6 g/dl (32.0-36.0); MEAN CELL VOLUME 72.7 fl (80-96); MEAN PLT VOLUME 8.1 fl (7.5-11.1); NEUTROPHILS 70.9 % (42.8-82.8); PLATELET COUNT 325 K/MM3 (134-434); RDW 17.3 % (11.6-15.6)
[2016-10-07] MEDS ORDERED: VANCOMYCIN 1 GRAM (PRE-DOCKED) 250 ML IVPB ONE ×2 (19:30→20:06)
--- NOTE | 2016-10-07 19:49 | HP ---
CHIEF COMPLAINT: Drainage from surgical site PCP: Dr. Ruthy Garces HISTORY OF PRESENT ILLNESS: Patient is a 71 year old female with a PMHx of HTN and colon cancer who is s/p colon resection, hernia repair and appendectomy on 09/26/2016 who presents today complaining of drainage from surgical site. Patient reports this morning around 09:30 she woke up and went to the bathroom when she noticed "wet stuff" coming out of her surgical site associated with intermittent shooting pains that last for a couple of seconds and tenderness. Patient states it's as if she is being stuck with a needle. Patient noticed the surgical site was also warmer and "more red" than usual, which prompted this hospital visit. Otherwise , patient denies fever, chills, nausea, vomiting, constipation, diarrhea, headache, chest pain, palpitations, shortness of breath, acute visual changes, dysuria, hematuria, frequency. ER course was notable for: (1) Abdominal CT (2) Vanco and Zosyn (3) IV Fluids Recent Travel: Denies PAST MEDICAL HISTORY: HTN and Colon Cancer PAST SURGICAL HISTORY: Colon resection, hernia repair and appendectomy on 2016, hysterectomy Social History: Smoking: Denies Alcohol: Denies Drugs: Denies Family History: Denies Allergies: No Known Allergies Allergy (Verified 10/07/16 12:20) HOME MEDICATIONS: Medication Instructions Recorded Amlodipine Besylate 10 mg PO DAILY 09/05/16 Aspirin [Aspirin EC] 81 mg PO DAILY 09/05/16 Oxycodone HCl/Acetaminophen 1 tab PO Q6H PRN #20 tablet MDD 4 09/30/16 [Percocet 5-325 mg Tablet] Acetaminophen [Tylenol -] 500 mg PO Q4H 10/07/16 REVIEW OF SYSTEMS CONSTITUTIONAL: Absent: fever, chills, diaphoresis, generalized weakness, malaise, loss of appetite, weight change HEENT: Absent: rhinorrhea, nasal congestion, throat pain, throat swelling, difficulty swallowing, mouth swelling, ear pain, eye pain, visual changes CARDIOVASCULAR: Absent: chest pain, syncope, palpitations, irregular heart rate, lightheadedness , peripheral edema RESPIRATORY: Absent: cough, shortness of breath, dyspnea with exertion, orthopnea, wheezing, stridor, hemoptysis GASTROINTESTINAL: Abdominal pain Absent: Abdominal distension, nausea, vomiting, diarrhea, constipation, melena, hematochezia GENITOURINARY: Absent: dysuria, frequency, urgency, hesitancy, hematuria, flank pain, genital pain MUSCULOSKELETAL: Absent: myalgia, arthralgia, joint swelling, back pain, neck pain SKIN: Erythema, warmth and drainage from surgical site below umbilicus Absent: rash, itching, pallor HEMATOLOGIC/IMMUNOLOGIC: Absent: easy bleeding, easy bruising, lymphadenopathy, frequent infections ENDOCRINE: Absent: unexplained weight gain, unexplained weight loss, heat intolerance, cold intolerance NEUROLOGIC: Absent: headache, focal weakness or paresthesias, dizziness, unsteady gait, seizure, mental status changes, bladder or bowel incontinence PSYCHIATRIC: Absent: anxiety, depression, suicidal or homicidal ideation, hallucinations. PHYSICAL EXAMINATION GENERAL: Awake, alert, and fully oriented, in no acute distress. HEAD: Normal with no signs of trauma. EYES: Pupils equal, round and reactive to light, extraocular movements intact, sclera anicteric, conjunctiva clear. EARS, NOSE, THROAT: Oropharynx clear without exudates. Moist mucous membranes. NECK: Normal range of motion, supple without lymphadenopathy, JVD, or masses. LUNGS: Breath sounds equal, clear to auscultation bilaterally. No wheezes, and no crackles. No accessory muscle use. HEART: Regular rate and rhythm, normal S1 and S2 without murmur, rub or gallop. ABDOMEN: Soft, mild tenderness upon palpation especially in the right lower quadrant. Vertical incision below umbilicus with mild erythema and warmth. (-) active draining of surgical site. Normoactive bowel sounds, no guarding, no rebound, no masses. No hepatomegaly or splenomegaly. MUSCULOSKELETAL: Normal range of motion at all joints. No bony deformities or tenderness. No CVA tenderness. UPPER EXTREMITIES: No peripheral edema. LOWER EXTREMITIES: No peripheral edema. NEUROLOGICAL: Normal speech. No focal deficits. Laboratory Results - last 24 hr 10/07/16 18:50 WBC 8.0 RBC 4.46 Hgb 10.2 L D Hct 32.4 MCV 72.7 L MCHC 31.6 L RDW 17.3 H Plt Count 325 D MPV 8.1 Neutrophils % 70.9 Lymphocytes % 18.5 D Monocytes % 7.9 Eosinophils % 1.6 D Basophils % 1.[address]: Findings suspicious for an evolving subcutaneous abscess at the level of the umbilicus. ASSESSMENT/PLAN: Patient is a 71 year old female with a PMHx of HTN and colon cancer s/p colon resection, hernia repair and appendectomy on 09/26/16 who presented today for abdominal tenderness and drainage from surgical site. CT revealed abdominal abscess and patient admitted to med/surg for further monitoring and management. Abdominal Abscess -Continue Zosyn Q6H, Vancomycin given in ED -NPO -Blood cultures sent -Coagulations ordered -Type and screen ordered -Continue IV Fluids at 75mls/hr -Morphine 2mg IVP Q6H PRN for pain -Surgery consult placed -ID consult placed -Continue wound dressing -Continue to monitor CBC HTN -Currently controlled -Amlodopine due to NPO -Continue to monitor BP F/E/N -Normal saline @75mls/hr -Electrolytes wnl -NPO Prophylaxis -SCD's for DVT -No GI needed Disposition -Full code -Admitted to med/surg. Awaiting surgery evaluation Visit type - Emergency Visit Emergency Visit: Yes ED Registration Date: 10/07/16 Care time: The patient presented to the Emergency Department on the above date and was hospitalized for further evaluation of their emergent condition. - New Patient This patient is new to me today: Yes Date on this admission: 10/08/16 - Critical Care Critical Care patient: No
[2016-10-07] MEDS ORDERED: morphine CARPU-JECT 2 MG/1 ML DISP.SYRIN IVPUSH PRN (19:59)
[2016-10-07] MEDS ORDERED: PIPERACILLIN/TAZOB 3.375 GM 50 ML IVPB ONE (20:07)
[2016-10-07] MEDS: SODIUM CHLORIDE 1,000 ML IV SCH (20:24)
[2016-10-07 23:10] VITALS: BMI 33.0
[2016-10-08 07:16] LABS: BASOPHIL 1.3 % (0-2.0); EOSINOPHIL 2.1 % (0-4.5); MCH 23.2 pg (25.7-33.7); MCHC 31.8 g/dl (32.0-36.0); MEAN CELL VOLUME 73.1 fl (80-96); MEAN PLT VOLUME 7.7 fl (7.5-11.1); NEUTROPHILS 71.4 % (42.8-82.8); PLATELET COUNT 260 K/MM3 (134-434); RDW 17.3 % (11.6-15.6); WHITE BLOOD COUNT 6.8 K/mm3 (4.0-10.0)
[2016-10-08 07:50] LABS: INR 1.12 (0.82-1.09); PROTHROMBIN TIME (PATIENT) 12.3 SEC (9.98-11.88)
[2016-10-08 07:53] LABS: ACTIVATED PTT 30.1 SECONDS (26.9-34.4)
[2016-10-08 08:27] LABS: ALBUMIN 3.2 g/dl (3.4-5.0); ALK PHOS 71 U/L (45-117); ANION GAP 9 (8-16); BILIRUBIN,TOTAL 0.3 mg/dL (0.2-1.0); CALCIUM 8.7 mg/dL (8.5-10.1); CO2 29 mmol/L (21-32); CREATININE 0.9 mg/dL (0.55-1.02); GLUCOSE,RANDOM 89 mg/dL (74-106); SGOT/AST 11 U/L (15-37); SGPT/ALT 16 U/L (12-78); TOT PROT 6.6 g/dl (6.4-8.2)
--- NOTE | 2016-10-08 10:13 | PN ---
Progress Note, Physician Chief Complaint: ID Full note dictated NO fevers chills only drainage at the surgical incision. Currently not enough to culture - Current Medication List Current Medications: Active Medications Sodium Chloride (Normal Saline -) 1,000 mls @ 75 mls/hr IV ASDIR ALTAF Last Admin: 10/07/16 20:24 Dose: 75 mls/hr Piperacillin Sod/Tazobactam (Sod 4.5 gm/ Dextrose) 100 mls @ 200 mls/hr IVPB Q6H-IV ALTAF Morphine Sulfate (Morphine Injection -) 2 mg IVPUSH Q6H PRN PRN Reason: MODERATE PAIN - Objective Vital Signs: Vital Signs Temperature 98.2 F 10/08/16 06:36 Pulse Rate 70 10/08/16 06:36 Respiratory Rate 18 10/08/16 06:36 Blood Pressure 122/77 10/08/16 06:36 O2 Sat by Pulse Oximetry (%) 99 10/07/16 23:00 Neck: Yes: WNL, Supple Cardiovascular: Yes: S1, S2 Respiratory: Yes: WNL, Regular, CTA Bilaterally Gastrointestinal: Yes: WNL, Normal Bowel Sounds, Soft, Other (Incision site ventral hernia some induration but not fluctuant). No: Tenderness Labs: CBC, BMP 10/08/16 05:52 10/08/16 05:52 INR, PTT INR 1.12 (0.82-1.09) 10/08/16 05:52 Problem List - Problems (1) Abscess of umbilicus Code(s): L02.216 - CUTANEOUS ABSCESS OF UMBILICUS Assessment/Plan Microbiology Laboratory Tests 10/08/16 10/08/16 05:52 05:52 WBC 6.8 Hgb 9.6 L Plt Count 260 BUN 10 Creatinine 0.9 Assessment Phlegmon at operative site no drainage noted Plan Await surgical evaluation for possible I / D CRP Vancomycin and Zosyn short term then ejnny Gallego MD
[2016-10-08] MEDS ORDERED: PIPERACILLIN/TAZOB 4.5 GM 4.5 GM in DEXTROSE 5%-WATER - 100 ML IVPB SCH (10:30)
--- NOTE | 2016-10-08 11:02 | CONS ---
DATE OF CONSULTATION: HISTORY: This is a 71-year-old female who I am asked to see with drainage from a recent operative wound site. The patient was operated on by Dr. Augustine at [facility] on September 26 with surgery including colon resection for cancer along with an appendectomy and hernia repair. The postoperative site was uneventful. Yesterday morning she woke up noting a copious drainage from the incision site with some transient shooting pains in the area. She had no fever or chills but came to the hospital and was admitted for further evaluation. Her white count was normal, and she had an abnormal CT scan performed. This showed an ill-defined fluid-filled collection in the midline of the lower anterior abdominal wall inferior to the umbilicus consistent with a phlegmon/abscess measuring 4 x 3 x 8 cm. PAST MEDICAL HISTORY: Includes recent diagnosis of colon cancer, recent abdominal surgery as above. FAMILY HISTORY: Reviewed and noncontributory. SOCIAL HISTORY: Nonsmoker. No history of alcohol or substance abuse. HIV status unknown. REVIEW OF SYSTEMS: Respiratory: No cough, shortness of breath. Cardiac: No chest pain or palpitations. Gastrointestinal: Currently no abdominal pain, vomiting, diarrhea. Genitourinary: No dysuria, hematuria. CURRENT MEDICATIONS: Antibiotics, Zosyn, vancomycin given 1 dose. PHYSICAL EXAMINATION: General: She is a heavyset woman in no acute distress. Vital Signs: Temperature 98.2, pulse 70, blood pressure 122/77, respirations 18. Neck: Supple. Lungs: Clear to P and A. Heart: S1, S2. Regular rhythm without murmur. Abdomen: Soft. No localized tenderness. Midline induration below the umbilicus with no fluctuance or tenderness in the area and no drainage or erythema seen. Extremities: Without edema. LABORATORY DATA: White count 6.8, hemoglobin 9.6, platelets 260, INR 1.1. Chemistries within normal limits. ASSESSMENT: A 71-year-old female status post colon surgery for carcinoma September 26 with resection, lysis of adhesions, and repair of ventral hernia who presents now with drainage from the incision with phlegmon abscess noted on the abdominal CAT scan below the umbilicus. She is not ill, toxic appearing, or febrile at this time. We will, in any case, treat her with IV antibiotics with vancomycin and Zosyn. Obtain a CRP. Await Dr. Kevin Augustine's surgical follow up for possible need for incision and drainage. Anticipate short length of stay. Would switch to oral therapy. TAMAR MOORE M.D. [id number]
[2016-10-08] MEDS: PIPERACILLIN/TAZOB 4.5 GM 4.5 GM in DEXTROSE 5%-WATER - 100 ML IVPB SCH ×2 (11:07→11:08)
[2016-10-08 12:31] LABS: C-REACTIVE PROTEIN 2.2 MG/DL (0.00-0.3)
--- NOTE | 2016-10-08 13:12 | CONSULT ---
Consultation: REQUESTING PROVIDER: Dr. Augustine, surgery CONSULT REQUEST: We have been asked to surgically evaluate this patient for incisional drainage/abscess s/p colon resection. HISTORY OF PRESENT ILLNESS: 71 yo F presented to the [facility] ED on 10/07/16 c/o drainage from midline incision. Patient underwent a robotic assisted right colectomy and ventral hernia repair with Dr. Augustine on 09/26/16 for a right colon neoplasm. The patient states she noticed the drainage yesterday and states it was a clear yellow/pink drainage without pus or odor. She states she has some minimal tenderness, but no real pain. She denies fever, chills, nausea , vomiting. PMH: HTN, colon neoplasm PSH: Robotic assisted right colectomy and ventral hernia repair with Dr. Augustine on 09/26/16 SH: Denies tobacco use, denies alcohol use Allergies: NKDA Medications: Medication Instructions Recorded Amlodipine Besylate 10 mg PO DAILY 09/05/16 Aspirin [Aspirin EC] 81 mg PO DAILY 09/05/16 Oxycodone HCl/Acetaminophen 1 tab PO Q6H PRN #20 tablet MDD 4 09/30/16 [Percocet 5-325 mg Tablet] Acetaminophen [Tylenol -] 500 mg PO Q4H 10/07/16 REVIEW OF SYSTEMS: CONSTITUTIONAL: Absent: fever, chills, diaphoresis, generalized weakness, malaise, loss of appetite CARDIOVASCULAR: Absent: chest pain, syncope, palpitations, lightheadedness RESPIRATORY: Absent: cough, shortness of breath, dyspnea with exertion, wheezing GASTROINTESTINAL: Absent: abdominal distension, nausea, vomiting, diarrhea, constipation, melena, hematochezia GENITOURINARY: Absent: dysuria, frequency, urgency, hesitancy, hematuria MUSCULOSKELETAL: Absent: myalgia, arthralgia, joint swelling, back pain, neck pain SKIN: Present: Incisional drainage Absent: rash, itching, pallor HEMATOLOGIC/IMMUNOLOGIC: Absent: easy bleeding, easy bruising NEUROLOGIC: Absent: headache, focal weakness or paresthesias, dizziness, mental status changes PSYCHIATRIC: Absent: anxiety, depression PHYSICAL EXAMINATION Vital Signs Temperature 98.4 F 10/08/16 10:00 Pulse Rate 68 10/08/16 10:00 Respiratory Rate 18 10/08/16 10:00 Blood Pressure 120/73 10/08/16 10:00 O2 Sat by Pulse Oximetry (%) 99 10/07/16 23:00 GENERAL: Awake, alert, and fully oriented, in no acute distress, pleasant and cooperative. HEAD: Normal with no signs of trauma. EYES: Pupils equal, round and reactive to light, sclera anicteric, conjunctiva clear. NECK: Normal range of motion, supple without lymphadenopathy, JVD, or masses. LUNGS: Breath sounds equal, clear to auscultation bilaterally. No wheezes, and no crackles. No accessory muscle use. HEART: Regular rate and rhythm, normal S1 and S2 without murmur, rub or gallop. ABDOMEN: Soft, not distended, bowel sounds, no guarding, no rebound. Approx 10 cm vertical midline incision below umbilicus closed with subcuticular suture and dermabond, minimal surrounding erythema, surrounding firmness and induration , no fluctuance, small amount yellow serous drainage expressed from upper portion of incision, no purulence or odor, no warmth, minimal tenderness with palpation around incision MUSCULOSKELETAL: Normal range of motion at all joints. UPPER EXTREMITIES: warm, well-perfused. No cyanosis. LOWER EXTREMITIES: warm, well-perfused. No calf tenderness. NEUROLOGICAL: Normal speech, gait not observed. PSYCH: Cooperative. Good eye contact. Appropriate mood and affect. SKIN: Warm, dry. LABS: Laboratory Results - last 24 hr CBC, BMP 10/08/16 05:52 10/08/16 05:52 CT ABD/PELVIS Reading: fluid collection within the midline of lower anterior abdominal wall inferior to umbilicus, 4.4x2.5x7.9cm Problem List - Problems (1) Fluid collection at surgical site Assessment/Plan: Seroma Afebrile, WBC WNL DC abx, follow-up as outpt in office with Dr. Augustine Code(s): T88.8XXA - OTH COMPLICATIONS OF SURGICAL AND MEDICAL CARE, NEC, INIT Visit type - Case Type Case Type: ED Admission
[2016-10-08] MEDS: VANCOMYCIN 1,250 MG in DEXTROSE 5%-WATER - 250 ML IVPB SCH ×2 (13:41→21:51)
--- NOTE | 2016-10-08 14:00 | PN ---
Teaching Attending Note Name of Resident: Lissa Del Toro ATTENDING PHYSICIAN STATEMENT I saw and evaluated the patient. I reviewed the resident's note and discussed the case with the resident. I agree with the resident's findings and plan as documented. SUBJECTIVE:currently asymptomatic. states she does not have any drainage that she appreciated from the incision. denies CP, SOB,fever, chills, N/V/C/D OBJECTIVE: Last Vital Signs Temp Pulse Resp BP Pulse Ox 98.4 F 68 18 120/73 99 10/08/16 10:10/08/16 10:10/08/16 10:10/08/16 10:10/07/16 23:00 General NAD Abdomen surgical incision below the umbilicus with sutures seen. upper-mid laceration is firm, mildly tender, no flucutance appreciated. no erythema ASSESSMENT AND PLAN: 71yo F with PMH HTn and colon cancer s/p resection and anastomosis done last month presents to the ER and was admitted for further evaluation of their emergent condition 1. ABdominal wound drainage- concern for abscess formation. CT scan showing 4.4x2.5x7.9 cm phlegmon with possible developing abscess. will possibly require I&D. surgeon who performed initial surgery consulted. ID on board. started on Vanco and Zosyn. pain control 2. HTN- currently normotensive off oral agents. will cont to hold and monitor if necessary 3. DVT ppx -start lovenox
--- NOTE | 2016-10-08 15:02 | PN ---
Physical Exam: SUBJECTIVE: Patient seen and examined patient resting in bed comfortably NAD. Kavita cute events overnight. Afebrile and hemodynamically stable. denies any further drainage from surgical site. very mild periincisional tenderness. denies fever or chills, denies h/a, chest pain, sob, palpitations, lightheadedness, n/v, abd pain, diarrhea, constipation or dysuria. OBJECTIVE: Vital Signs Period Temp Pulse Resp BP Sys/Gutierrez Pulse Ox Last 24 Hr 97.8 F-98.4 F 62-78 18-18 104-136/57-93 99-99 GENERAL: The patient is awake, alert, and fully oriented, in no acute distress. HEAD: Normal with no signs of trauma. EYES: PERRL, extraocular movements intact, sclera anicteric, conjunctiva clear. ENT: moist mucous membranes. NECK: supple. LUNGS: Breath sounds equal, clear to auscultation bilaterally HEART: Regular rate and rhythm, S1, S2 ABDOMEN: Soft, nontender, nondistended, normoactive bowel sounds, no guarding, no rebound, no hepatosplenomegaly, no masses. Midline abd incision nondraining, mildly erythematous, mildly indurated, nontender, not overly warm, Trace serous fluid on dressing. no discharge expelled upon pressing. EXTREMITIES: 2+ pulses, warm, well-perfused, no edema. NEUROLOGICAL: Cranial nerves II through XII grossly intact. Normal speech, gait not observed. PSYCH: Normal mood, normal affect. SKIN: Warm, dry, lesion as above Laboratory Results - last 24 hr 10/07/16 10/07/16 10/07/16 18:50 18:50 22:30 WBC 8.0 RBC 4.46 Hgb 10.2 L D Hct 32.4 MCV 72.7 L MCHC 31.6 L RDW 17.3 H Plt Count 325 D MPV 8.1 Neutrophils % 70.9 Lymphocytes % 18.5 D Monocytes % 7.9 Eosinophils % 1.6 D Basophils % 1.1 INR PTT (Actin FS) Sodium Potassium Chloride Carbon Dioxide Anion Gap BUN Creatinine Creat Clearance w eGFR Random Glucose Lactic Acid 0.864 Calcium Total Bilirubin AST ALT Alkaline Phosphatase C-Reactive Protein Total Protein Albumin Blood Type O POSITIVE Antibody Screen Negative 10/08/16 10/08/16 10/08/16 05:52 05:52 05:52 WBC 6.8 RBC 4.15 Hgb 9.6 L Hct 30.4 L MCV 73.1 L MCHC 31.8 L RDW 17.3 H Plt Count 260 MPV 7.7 Neutrophils % 71.4 Lymphocytes % 13.9 D Monocytes % 11.3 H Eosinophils % 2.1 Basophils % 1.3 INR 1.12 PTT (Actin FS) 30.1 Sodium 145 Potassium 4.6 Chloride 107 Carbon Dioxide 29 Anion Gap 9 BUN 10 Creatinine 0.9 Creat Clearance w eGFR > 60 Random Glucose 89 D Lactic Acid Calcium 8.7 Total Bilirubin 0.3 D AST 11 L D ALT 16 Alkaline Phosphatase 71 C-Reactive Protein 2.2 H Total Protein 6.6 Albumin 3.2 L Blood Type Antibody Screen 10/08/16 10:20 WBC RBC Hgb Hct MCV MCHC RDW Plt Count MPV Neutrophils % Lymphocytes % Monocytes % Eosinophils % Basophils % INR PTT (Actin FS) Sodium Potassium Chloride Carbon Dioxide Anion Gap BUN Creatinine Creat Clearance w eGFR Random Glucose Lactic Acid Calcium Total Bilirubin AST ALT Alkaline Phosphatase C-Reactive Protein Cancelled Total Protein Albumin Blood Type Antibody Screen Active Medications Generic Name Dose Route Start Last Admin Trade Name Freq PRN Reason Stop Dose Admin Enoxaparin Sodium 40 mg 10/09/16 10:00 Lovenox - SQ DAILY ALTAF Sodium Chloride 1,000 mls @ 75 mls/hr 10/07/16 20:00 10/07/16 20:24 Normal Saline - IV 75 mls/hr ASDIR ALTAF Administration Vancomycin HCl 1,250 mg/ 250 mls @ 250 mls/hr 10/08/16 10:30 10/08/16 13:41 Dextrose IVPB 250 mls/hr BID ALTAF Administration Piperacillin Sod/Tazobactam Sod 100 mls @ 200 mls/hr 10/08/16 11:09 Zosyn 4.5gm Ivpb (Pre-Docked) IVPB Q8H-IV ALTAF Morphine Sulfate 2 mg 10/07/16 19:59 Morphine Injection - IVPUSH Q6H PRN MODERATE PAIN ASSESSMENT/PLAN: Patient is a 71 year old female with a PMHx of HTN and colon cancer s/p colon resection, hernia repair and appendectomy on 09/26/16 who presented today for abdominal tenderness and drainage from surgical site. CT revealed abdominal abscess and patient admitted to med/surg for further monitoring and management. surgical site subcutaneous Seroma vs abscess -afebrile, no leukocytosis -surgical site normal findings post op -clinically not consistent with infection, likley seroma -CT abd: possible developing subq abscess -ID consult: IV Zosyn, Vancomycin, anticipate PO switch -CRP -Blood cultures sent -Morphine 2mg IVP Q6H PRN for pain (not required by patient so far) -Surgery consult -wound care Colon CA s/p resection -f/u oncology, GI and surgery outpatient HTN -controlled -Amlodopine 10 -asa FEN No IVF Lystes stable DVT GI PPX: SCD, Diet Na controlled diet Dispo: monitor in med [facility] Problem List - Problems (1) Abscess of umbilicus Code(s): L02.216 - CUTANEOUS ABSCESS OF UMBILICUS (2) Fluid collection at surgical site Code(s): T88.8XXA - OTH COMPLICATIONS OF SURGICAL AND MEDICAL CARE, NEC, INIT (3) Post surgical complication Code(s): T81.9XXA - UNSPECIFIED COMPLICATION OF PROCEDURE, INITIAL ENCOUNTER Qualifiers: Surgical complication system/body Area: subcutaneous tissue Surgical complication type: unspecified Procedure type: non-dermatologic Qualified Code(s): L76.82 - Other postprocedural complications of skin and subcutaneous tissue (4) HTN (hypertension) Code(s): I10 - ESSENTIAL (PRIMARY) HYPERTENSION Visit type - Emergency Visit Emergency Visit: Yes ED Registration Date: 10/07/16 Care time: The patient presented to the Emergency Department on the above date and was hospitalized for further evaluation of their emergent condition. - New Patient This patient is new to me today: Yes Date on this admission: 10/08/16 - Critical Care Critical Care patient: No - Discharge Referral Referred to [facility] No
[2016-10-08] MEDS: ASPIRIN COATED 81 MG TABLET.EC PO SCH (16:32)
[2016-10-08] MEDS: amLODIPine BESYLATE 10 MG TABLET (FP) PO SCH (16:32)
[2016-10-08] MEDS: PIPERACILLIN/TAZOB 4.5 GM 100 ML IVPB SCH (18:42)
[2016-10-08] MEDS ORDERED: PT OWN MED DRAWER 7, Y5N ONE (21:21)
[2016-10-08] MEDS: SODIUM CHLORIDE 1,000 ML IV SCH (21:51)
--- NOTE | 2016-10-08 22:16 | CONSULT ---
Consult Consult Specialty:: surgery Reason for Consultation:: drainage from incision - History of Present Illness Chief Complaint: draianage from incision History of Present Illness: 71 yr old female s/p robotic colectomy 2 weeks ago presents to ER for evaluation of draiange from incision. She denies Abdominal pain, denies fever chills. PAtient has been tolerating a regular diet and having regular BMs - History Source Limitations to Obtaining History: No Limitations - Past Medical History ...: No - Alcohol/Substance Use Hx Alcohol Use: No - Smoking History Smoking history: Never smoked Have you smoked in the past 12 months: No Home Medications - Allergies Allergies/Adverse Reactions: Allergies Allergy/AdvReac Type Severity Reaction Status Date / Time No Known Allergies Allergy Verified 10/07/16 12:20 - Home Medications Home Medications: Ambulatory Orders Amlodipine Besylate 10 mg PO DAILY 09/05/16 Aspirin [Aspirin EC] 81 mg PO DAILY 09/05/16 Oxycodone HCl/Acetaminophen [Percocet 5-325 mg Tablet] 1 tab PO Q6H PRN #20 tablet MDD 4 09/30/16 Acetaminophen [Tylenol -] 500 mg PO Q4H 10/07/16 Physical Exam Vital Signs: Vital Signs Temperature 97.7 F 10/08/16 18:00 Pulse Rate 68 10/08/16 18:00 Respiratory Rate 20 10/08/16 21:00 Blood Pressure 133/84 10/08/16 18:00 O2 Sat by Pulse Oximetry (%) 98 10/08/16 21:00 Labs: CBC, BMP 10/08/16 05:52 10/08/16 05:52 Imaging - Results Cat Scan: Report Reviewed, Image Reviewed (No evidence of Plegmon. there is a subcutaneous fluid collection at the site of ventral hernia clinically and radiographically consistent with seroma) Problem List - Problems (1) Seroma, postoperative Code(s): [id number] - Assessment/Plan 71 yr old female s/p robotic colectomy and concominant incisional hernia repair presenting with serous drainage from incision site afebrile, nrmal WBC Diagnosis: Postop seroma treatment : observation this is a common finding after incisional hernia repair which was also do in this case and should not be a need for antibiotics or admission. Please discharge patient at your earliest convenient. She will follow up with me in the office this saturday. thank you
[2016-10-09] MEDS: PIPERACILLIN/TAZOB 4.5 GM 100 ML IVPB SCH (01:25)
[2016-10-09] MEDS: SODIUM CHLORIDE 1,000 ML IV SCH (06:41)
--- NOTE | 2016-10-09 07:34 | DS ---
Physical Exam: SUBJECTIVE: Patient seen and examined patient resting in bed comfortably NAD. Kavita cute events overnight. Afebrile and hemodynamically stable. denies any further drainage from surgical site. very mild periincisional tenderness. denies fever or chills, denies h/a, chest pain, sob, palpitations, lightheadedness, n/v, abd pain, diarrhea, constipation or dysuria. OBJECTIVE: Vital Signs Period Temp Pulse Resp BP Sys/Gutierrez Pulse Ox Last 24 Hr 97.7 F-99 F 68-78 18-20 109-133/57-84 98-100 PHYSICAL EXAM GENERAL: The patient is awake, alert, and fully oriented, in no acute distress. HEAD: Normal with no signs of trauma. EYES: PERRL, extraocular movements intact, sclera anicteric, conjunctiva clear. ENT: moist mucous membranes. NECK: supple. LUNGS: Breath sounds equal, clear to auscultation bilaterally HEART: Regular rate and rhythm, S1, S2 ABDOMEN: Soft, nontender, nondistended, normoactive bowel sounds, no guarding, no rebound, no hepatosplenomegaly, no masses. Midline abd incision nondraining, mildly erythematous, mildly indurated, nontender, not overly warm, Trace serous fluid on dressing. no discharge expelled upon pressing. EXTREMITIES: 2+ pulses, warm, well-perfused, no edema. NEUROLOGICAL: Cranial nerves II through XII grossly intact. Normal speech, gait not observed. PSYCH: Normal mood, normal affect. SKIN: Warm, dry, lesion as above LABS Laboratory Results - last 24 hr 10/08/16 10/08/16 10/08/16 05:52 05:52 10:20 INR 1.12 PTT (Actin FS) 30.1 Sodium 145 Potassium 4.6 Chloride 107 Carbon Dioxide 29 Anion Gap 9 BUN 10 Creatinine 0.9 Creat Clearance w eGFR > 60 Random Glucose 89 D Calcium 8.7 Total Bilirubin 0.3 D AST 11 L D ALT 16 Alkaline Phosphatase 71 C-Reactive Protein 2.2 H Cancelled Total Protein 6.6 Albumin 3.2 L HOSPITAL COURSE: Date of Admission:10/07/16 Patient is a 71 year old female with a PMHx of HTN and colon cancer who is s/p colon resection, hernia repair and appendectomy on 09/26/2016 who presents today complaining of drainage from surgical site. Patient reports this morning around 09:30 she woke up and went to the bathroom when she noticed "wet stuff" coming out of her surgical site associated with intermittent shooting pains that last for a couple of seconds and tenderness. Patient states it's as if she is being stuck with a needle. Patient noticed the surgical site was also warmer and "more red" than usual, which prompted this hospital visit. Otherwise , patient denies fever, chills, nausea, vomiting, constipation, diarrhea, headache, chest pain, palpitations, shortness of breath, acute visual changes, dysuria, hematuria, frequency. Patient is a 71 year old female with a PMHx of HTN and colon cancer s/p colon resection, hernia repair and appendectomy on who presented today for abdominal tenderness and drainage from surgical site. CT revealed abdominal abscess and patient admitted to med/surg for further monitoring and management. She was admitted with surgical site subcutaneous Seroma vs abscess Because she was afebrile, no leukocytosis and the surgical site included normal findings post op, it was clinically not consistent with infection and likley seroma. CT abd: possible developing subq abscess. ID consult started IV Zosyn, Vancomycin. Upon evaluation by surgeon, patient was confirmed to have a seroma and sent home w/o abx. Date of Discharge: 10/09/16 Minutes to complete discharge: 30 (na) Discharge Summary Reason For Visit: POST-SURG, COMPLICATIONS Current Active Problems Abscess of umbilicus (Acute) Fluid collection at surgical site (Acute) HTN (hypertension) (Acute) Post surgical complication (Acute) Seroma, postoperative (Acute) Condition: Good - Instructions Diet, Activity, Other Instructions: you have a seroma under your skin, which is a very normal post operative finding of a small fluid collection. it is not infectious and will resolve on its own. you may see a little bit if drainage. a small amout of redness and pain around the incision is also a normal finding after surgery. you do not need antibiotics. please see your surgeon in 1 week. return to the hospital or call surgeon if incision becomes very red, very swollen, very painful, draining pus or if you develop fevers. Referrals: Ruthy Garces MD [Primary Care Provider] - 1 Week Kevin Augustine [Staff Physician] - 1 Week Disposition: HOME - Home Medications Comprehensive Discharge Medication List: Ambulatory Orders Amlodipine Besylate 10 mg PO DAILY 09/05/16 Aspirin [Aspirin EC] 81 mg PO DAILY 09/05/16 Oxycodone HCl/Acetaminophen [Percocet 5-325 mg Tablet] 1 tab PO Q6H PRN #20 tablet MDD 4 09/30/16 Acetaminophen [Tylenol -] 500 mg PO Q4H 10/07/16 Problem List - Problems (1) Abscess of umbilicus Code(s): L02.216 - CUTANEOUS ABSCESS OF UMBILICUS (2) Fluid collection at surgical site Code(s): T88.8XXA - OTH COMPLICATIONS OF SURGICAL AND MEDICAL CARE, NEC, INIT (3) Post surgical complication Code(s): T81.9XXA - UNSPECIFIED COMPLICATION OF PROCEDURE, INITIAL ENCOUNTER Qualifiers: Surgical complication system/body Area: subcutaneous tissue Surgical complication type: unspecified Procedure type: non-dermatologic Qualified Code(s): L76.82 - Other postprocedural complications of skin and subcutaneous tissue (4) HTN (hypertension) Code(s): I10 - ESSENTIAL (PRIMARY) HYPERTENSION This patient is new to me today: No Emergency Visit: Yes ED Registration Date: 10/07/16 Care time: The patient presented to the Emergency Department on the above date and was hospitalized for further evaluation of their emergent condition. Critical Care patient: No - Discharge Referral Referred to [facility] No
[2016-10-09 07:35] LABS: MCH 23.3 pg (25.7-33.7); MCHC 32.3 g/dl (32.0-36.0); MEAN CELL VOLUME 72.4 fl (80-96); MEAN PLT VOLUME 7.8 fl (7.5-11.1); PLATELET COUNT 250 K/MM3 (134-434); RDW 17.3 % (11.6-15.6)
[2016-10-09] MEDS ORDERED: ENOXAPARIN NA (PORCINE) 40 MG/0.4 ML DISP.SYRIN SQ SCH (10:00)
[2016-10-09 10:18] VITALS: BP 116/74; PULSE 70; TEMP 98.2
[2016-10-09] MEDS: ASPIRIN COATED 81 MG TABLET.EC PO SCH (10:21)
[2016-10-09] MEDS: amLODIPine BESYLATE 10 MG TABLET (FP) PO SCH (10:21)
== END 2016-10-09 10:46 | disposition home or self-care (01) | DRG 921 ==
LOC: JER 12:16 → JERBED 18:43 → J7W 23:18
PROVIDERS: ADMIT Internal Medicine; ATTEND Internal Medicine
DX: K91.872 Postprocedural seroma of a digestive system organ or structure following a digestive system procedure (principal); I10 Essential (primary) hypertension; Z85.038 Personal history of other malignant neoplasm of large intestine; Y83.9 Surgical procedure, unspecified as the cause of abnormal reaction of the patient, or of later complication, without mention of misadventure at the time of the procedure
CPT/HCPCS: 36415; 74177-TC; 80053; 83605; 85025; 85027; 85610; 85730; 86140; 86850; 86900; 86901; 87040; 99282-25; 99285-25

== ENCOUNTER 2021-06-01 23:42 | Emergency (ER) | payer OTHER ==
[2021-06-01 23:46] VITALS: TEMP 98.3; BMI 29.1
[2021-06-02 00:47] LABS: BASO % 1.2 % (0-2.0); EOS % 1.2 % (0-4.5); HEMATOCRIT 33.9 % (32.4-45.2); HEMOGLOBIN 11.2 GM/dL (10.7-15.3); LYMPH % 21.4 % (8-40); MCH 25.8 pg (25.7-33.7); MCHC 32.9 g/dl (32.0-36.0); MEAN CELL VOLUME 78.3 fl (80-96); MEAN PLT VOLUME 8.7 fl (7.5-11.1); MONO % 10.5 % (3.8-10.2); NEUT % 65.7 % (42.8-82.8); PLATELET COUNT 211 10^3/uL (134-434); RBC 4.33 M/mm3 (3.60-5.2); RDW 15.9 % (11.6-15.6); WHITE BLOOD COUNT 6.3 K/mm3 (4.0-10.0)
[2021-06-02 00:55] LABS: INR 0.97 (0.83-1.09); PROTHROMBIN TIME (PATIENT) 11.9 SEC (9.7-13.0)
[2021-06-02 00:58] LABS: ACTIVATED PTT 25.8 SECONDS (25.2-36.5)
[2021-06-02 01:00] LABS: CHLORIDE 106 mmol/L (98-107); SODIUM 142 mmol/L (136-145)
[2021-06-02 01:02] LABS: ALBUMIN 3.4 g/dl (3.4-5.0); ANION GAP 8 MMOL/L (8-16); BLOOD UREA NITROGEN 19.3 mg/dL (7-18); CALCIUM 9.1 mg/dL (8.5-10.1); CO2 28 mmol/L (21-32)
[2021-06-02 01:03] LABS: GLUCOSE,RANDOM 109 mg/dL (74-106); MAGNESIUM 2.6 mg/dL (1.8-2.4)
[2021-06-02 01:06] LABS: CREATININE 1.1 mg/dL (0.55-1.3); SGOT/AST 12 U/L (15-37); SGPT/ALT 12 U/L (13-61)
[2021-06-02 01:07] LABS: BILIRUBIN,TOTAL 0.2 mg/dL (0.2-1); TOT PROT 7.1 g/dl (6.4-8.2)
[2021-06-02 01:08] LABS: ALK PHOS 86 U/L (45-117)
[2021-06-02 04:34] LABS: PH,URINE 6.5 (5.0-8.0); URINE APPEARANCE CLEAR; URINE BILIRUBIN NEGATIVE (NEGATIVE); URINE COLOR YELLOW; URINE GLUCOSE (UA) NEGATIVE (NEGATIVE); URINE KETONE NEGATIVE (NEGATIVE); URINE LEUK ESTERASE NEGATIVE (NEGATIVE); URINE NITRITE NEGATIVE (NEGATIVE); URINE PROTEIN NEGATIVE (NEGATIVE); URINE UROBILINOGEN 0.2 mg/dL (0.2-1.0)
[2021-06-02] MEDS ORDERED: VALPROATE SODIUM 500 MG/5 ML VIAL IVPB ONE (04:43)
[2021-06-02] MEDS ORDERED: DIVALPROEX SODIUM 500 MG TABLET E.C. PO ONE (04:44)
[2021-06-02] MEDS: VALPROATE SODIUM 250 MG/5 ML UNIT DOSE CUP PO ONE ×2 (05:01→05:12)
[2021-06-02 05:11] VITALS: BP 150/95; PULSE 88
== END 2021-06-02 05:11 | disposition home or self-care (01) ==
LOC: JER 23:42
PROC: 3E033NZ Introduction of Analgesics, Hypnotics, Sedatives into Peripheral Vein, Percutaneous Approach (ICD-10-PCS; principal; 2021-06-01)
DX: C70.9 Malignant neoplasm of meninges, unspecified (principal); R56.9 Unspecified convulsions
CPT/HCPCS: 36415; 70450-TC; 71045-TC-FY; 72125-TC; 73110-TC-RT-FY; 73130-TC-RT-FY; 80053; 80177; 81003; 82550; 83735; 84484; 85025; 85610; 85730; 87086; 93005; 93010; 99284-25

== ENCOUNTER 2024-01-04 16:35 | Emergency (ER) | payer OTHER ==
[2024-01-04 17:28] VITALS: BP 142/63; PULSE 66; RESP 18; TEMP 98.9; BMI 34.4
[2024-01-04 18:22] LABS: BASO % 0.6 % (0-2.0); EOS % 0.6 % (0-4.5); HEMOGLOBIN 11.5 GM/dL (10.7-15.3); LYMPH % 24.5 % (8-40); MCH 27.8 pg (25.7-33.7); MCHC 32.7 g/dl (32.0-36.0); MEAN PLT VOLUME 8.6 fl (7.5-11.1); MONO % 15.4 % (3.8-10.2); NEUT % 58.9 % (42.8-82.8); PLATELET COUNT 170 10^3/uL (134-434); RBC 4.12 M/mm3 (3.60-5.2); RDW 14.9 % (11.6-15.6); WHITE BLOOD COUNT 4.9 K/mm3 (4.0-10.0)
[2024-01-04 18:27] LABS: INR 0.98 (0.83-1.09); PROTHROMBIN TIME (PATIENT) 11.1 SEC (9.7-13.0)
[2024-01-04 18:30] LABS: ACTIVATED PTT 30.7 SECONDS (25.2-36.5)
[2024-01-04 18:35] LABS: POTASSIUM 4.2 mmol/L (3.5-5.1)
[2024-01-04 18:37] LABS: CALCIUM 8.7 mg/dL (8.5-10.1)
[2024-01-04 18:38] LABS: ALBUMIN 3.3 g/dl (3.4-5.0)
[2024-01-04 18:39] LABS: BLOOD UREA NITROGEN 21.6 mg/dL (7-18)
[2024-01-04 18:41] LABS: CREATININE 1.1 mg/dL (0.55-1.3)
[2024-01-04 18:42] LABS: TOT PROT 6.2 g/dl (6.4-8.2)
[2024-01-04 18:42] LABS: EPI CELLS 14 /uL (0-25.1); HYALINE CASTS 0 /uL (0-3.1); URINE APPEARANCE CLEAR; URINE BACTERIA 172 /uL (0-1359); URINE BILIRUBIN NEGATIVE (NEGATIVE); URINE COLOR YELLOW; URINE GLUCOSE (UA) NEGATIVE (NEGATIVE); URINE KETONE NEGATIVE (NEGATIVE); URINE LEUK ESTERASE TRACE (NEGATIVE); URINE NITRITE NEGATIVE (NEGATIVE); URINE PROTEIN NEGATIVE (NEGATIVE); URINE RBC 5 /uL (0-23.9); URINE WBC 20 /uL (0-25.8)
[2024-01-04 18:43] LABS: BILIRUBIN,TOTAL 0.5 mg/dL (0.2-1)
[2024-01-04] MEDS: CEFTRIAXONE 1,000 MG in DEXTROSE 5%-WATER - 50 ML IVPB ONE (19:11)
== END 2024-01-04 19:30 | disposition home or self-care (01) ==
LOC: JER 16:35
DX: R55 Syncope and collapse (principal); V49.40XA Driver injured in collision with unspecified motor vehicles in traffic accident, initial encounter; Y92.410 Unspecified street and highway as the place of occurrence of the external cause
CPT/HCPCS: 36415; 70450-TC; 80053; 80061; 81003; 82550; 82962; 83036; 84484; 85025; 85610; 85730; 86850; 86900; 86901; 93005; 93010; 99285-25